=== PATIENT | female | born 1985 | race Two or more races ===

== ENCOUNTER 2024-10-06 06:50 | Emergency (ER) | payer MEDICAID, OTHER ==
[~2024-10-06] VITALS: Ht 152.4 cm; Wt 74.1 kg
--- NOTE | 2024-10-06 07:12 | ED.PDOC ---
HPI Comments 39-year-old female presents with a chief complaint of chest pain x 1 week with associated dizziness. Patient states that her chest pain is localized to her sternal region, radiates to her left shoulder, and started while she was lying down. Patient mentions that she has been having dizziness, like "I am going to faint", and the dizziness is made worse when turning her head side to side. Patient denies any injuries or trauma prior to onset of symptoms. 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 Family History Family History: Reviewed,noncontributory to illness Social History Smoker: Non-Smoker Alcohol: Denies ETOH Use Drugs: Denies Drug Use Lives In: Home Constitutional: denies: chills, diaphoresis, fatigue, fever, malaise, sweats, weakness, others EENTM: denies: blurred vision, double vision, ear bleeding, ear discharge, ear drainage, ear pain, ear ringing, eye pain, eye redness, hearing loss, mouth pain, mouth swelling, nasal discharge, nose bleeding, nose congestion, nose pain, photophobia, tearing, throat pain, throat swelling, voice changes, others Respiratory: denies: cough, hemoptysis, orthopnea, SOB at rest, shortness of breath, SOB with excertion, stridor, wheezing, others Cardiovascular: reports: chest pain; denies: dizzy spells, diaphoresis, Dyspnea on exertion, edema, irregular heart beat, left arm pain, lightheadedness, palpitations, PND, syncope, others Gastrointestinal: denies: abdomen distended, abdominal pain, blood streaked bowels, constipated, diarrhea, dysphagia, difficulty swallowing, hematemesis, melena, nausea, poor appetite, poor fluid intake, rectal bleeding, rectal pain, vomiting, others Genitourinary: denies: abnormal vagina bleeding, burning, dyspareunia, dysuria, flank pain, frequency, hematuria, incontinence, pain, , vagina discharge, urgency, others Neurological: reports: dizziness; denies: fainting, headache, left sided numbness, left sided weakness, numbness, paresthesia, pre-existing deficit, right sided numbness, right sided weakness, seizure, speech problems, tingling, tremors, weakness, others Musculoskeletal: denies: back pain, gout, joint pain, joint swelling, muscle pain, muscle stiffness, neck pain, others Integumetry: denies: bruises, change in color, change in hair/nails, dryness, laceration, lesions, lumps, rash, wounds, others Allergic/Immunocompromised: denies: Difficulty Healing, Frequent Infections, Hives, Itching, others Hematologic/Lymphatic: denies: anemia, blood clots, easy bleeding, easy bruising, swollen glands, others Endocrine: denies: excessive hunger, excessive sweating, excessive thirst, excessive urination, flushing, intolerance to cold, intolerance to heat, unexplained weight gain, unexplained weight loss, others Psychiatric: denies: anxiety, bipolar disorder, depression, hopeless, panic disorder, schizophrenia, sleepless, suicidal, others All Other Systems: Reviewed and Negative Physical Exam General Appearance: No Apparent Distress, Normal HEENT: Normal ENT Inspection, Pharynx Normal, TMs Normal Neck: Full Range of Motion, Non-Tender, Normal, Normal Inspection Respiratory: Chest Non-Tender, Lungs Clear, No Accessory Muscle Use, No Respiratory Distress, Normal Breath Sounds Cardiovascular: No Edema, No JVD, No Murmur, No Gallop, Normal Peripheral Pulses, Regular Rate/Rhythm Breast Exam: Deferred Gastrointestinal: No Organomegaly, Non Tender, No Pulsatile Mass, Normal Bowel Sounds, Soft Genitalia: Deferred Pelvic: Deferred Rectal: Deferred Extremities: No calf tenderness, Normal capillary refill, Normal inspection, Normal range of motion, Non-tender, No pedal edema Musculoskeletal : Apperance: Normal Neurologic: Alert, phone triage specialist II-XII nml as Tested, No Motor Deficits, Normal Affect, Normal Mood, No Sensory Deficits Cerebellar Function: Normal Reflexes: Normal Skin: Dry, Normal Color, Warm Lymphatic: No Adenopathy EKG EKG #1: Pulse Rate (adult): 97 [place]: Normal Cardiac Rhythm: NSR Block: None Hypertrophy: None ST: Normal Comments NO SIGNIFICANT ST CHANGES EKG #2: Comments 7:46 a.m. 2nd EKG Rate of 89 normal sinus rhythm with no significant ST changes. Unchanged from previous. Was a procedure done? Was a procedure done?: No CP Differential Dx Differential Diagnosis: Angina, Anxiety / Panic Attack, Electrolyte Disorder, Pulmonary Embolus Differential Diagnosis: Angina, Chest Wall Pain, Costochondritis, Gastritis, Myocardial Infarction, Pneumonia, Pulmonary Embolus X-Ray, Labs, Meds, VS Vital Signs Date Time Temp Pulse Resp B/P (MAP) Pulse Ox O2 Delivery O2 Flow Rate FiO2 10/06/24 07:59 82 18 98 Room Air 10/06/24 07:59 97.9 82 18 143/77 (99) 98 97.9 10/06/24 07:46 89 10/06/24 07:20 97 10/06/24 06:58 97.7 96 16 150/108 (122) 100 10/06/24 06:58 97 Lab Test 10/06/24 07:55 10/06/24 07:07 10/06/24 07:00 Range/Units Troponin I High Sensitivity < 3 L < 3 L </=34 ng/L White Blood Count 6.7 4.4-10.8 10^3/uL Red Blood Count 4.68 4.0-5.20 10^6/uL Hemoglobin 13.5 12.2-16.2 g/dL Hematocrit 41.1 36.0-46.0 % Mean Corpuscular Volume 87.6 80.0-100.0 fL Mean Corpuscular Hemoglobin 28.9 28.0-32.0 pg Mean Corpuscular Hemoglobin Concent 32.9 32.0-36.0 g/dL Red Cell Distribution Width 14.5 H 11.8-14.3 % Platelet Count 470 H 140-450 10^3/uL Mean Platelet Volume 8.0 6.9-10.8 fL Neutrophils (%) (Auto) 54.2 37.0-80.0 % Lymphocytes (%) (Auto) 38.0 10.0-50.0 % Monocytes (%) (Auto) 5.9 0.0-12.0 % Eosinophils (%) (Auto) 1.5 0.0-7.0 % Basophils (%) (Auto) 0.4 0.0-2.0 % Neutrophils # (Auto) 3.6 1.6-8.6 10 ^3/uL Lymphocytes # (Auto) 2.5 0.4-5.4 10 ^3/uL Monocytes # (Auto) 0.4 0-1.3 10 ^3/uL Eosinophils # (Auto) 0.1 0-0.8 10 ^3/uL Basophils # (Auto) 0 0-0.2 10 ^3/uL Nucleated Red Blood Cells 0.1 % Sodium Level 139 136-145 mmol/L Potassium Level 4.6 3.5-5.1 mmol/L Chloride Level 105 98-107 mmol/L Carbon Dioxide Level 26 20-31 mmol/L Anion Gap 8 5-15 Blood Urea Nitrogen 10 9-23 mg/dL Creatinine 0.80 0.550-1.02 mg/dL Glomerular Filtration Rate Calc 97 >90 mL/min BUN/Creatinine Ratio 12.5 10.0-20.0 Serum Glucose 107 H 74-106 mg/dL Calcium Level 10.0 8.7-10.4 mg/dL Urine Test Negative Negative 39-year-old female presents here with chest discomfort and dizziness. She states she has been stressed recently. She describes the dizziness as fainting like feeling not a room spinning sensation. I had her drank 1 L of water in the emergency department with improvement in her symptoms. Advised her she should drink more water and also tried to decrease her stress as much as possible. She does report chest discomfort. Considered possible acute coronary syndrome. Troponin x2 and EKG x2 has been negative. Other blood work in the emergency department has been done including a CBC and a BMP which were all within normal limits. Urine is negative today. At this time we discharging her home. Low suspicion for acute coronary syndrome. Advised her to take ibuprofen for chest discomfort for possible musculoskeletal/costochondritis. I have given her 1st dose in the ER. Advised her to return if symptoms worsen or persist. Patient agreeable and understands. Time of 1ST Reevaluation: 07:37 Reevaluation 1ST: Unchanged Time of 2ND Reevaluation: 09:09 Reevaluation 2ND: Improved Patient Education/Counseling: Diagnosis, Treatment, Prognosis Family Education/Counseling: Diagnosis, Treatment, Prognosis Departure 1 Departure Time of Disposition: 08:51 Impression: Primary Impression: Chest pain Qualified Codes: R07.9 - Chest pain, unspecified Additional Impression: Dizziness Disposition: 01 HOME / SELF CARE / HOMELESS Condition: Fair Additional Instructions: Follow up your primary care physician in 2-3 days. Return to the ER if symptoms worsen or persist. Take ibuprofen 600 mg ( 3x 200 mg tablets found [id number]) every 6 hours for the 1st 24 hours to help with chest discomfort inflammation the chest wall. After 1st 24 hours you may take it as needed. Discharged With: Self Critical Care Note Critical Care Time?: No Stability Stability form required: No Heart Score Heart Score: Heart Score Response (Comments) Value History Moderate Suspicious 1 EKG Normal 0 Age <45 0 Risk Factors No known risk factors 0 Troponin Normal limit 0 Total 1 I personally scribed for TOMMY PATRICIA MD ([email or web address]) on 10/06/24 at 08:51. Electronically submitted by Alex Douglas ([email or web address]). TOMMY PATRICIA MD Oct 06, 2024 07:12
[2024-10-06 07:47] LABS: Basophils # (auto) 0 10 ^3/uL (0-0.2); Basophils % (auto) 0.4 % (0.0-2.0); Eosinophils # (auto) 0.1 10 ^3/uL (0-0.8); Eosinophils % (auto) 1.5 % (0.0-7.0); Hematocrit 41.1 % (36.0-46.0); Hemoglobin 13.5 g/dL (12.2-16.2); Lymphocytes # (auto) 2.5 10 ^3/uL (0.4-5.4); Mean Corpuscular Hemoglobin 28.9 pg (28.0-32.0); Mean Corpuscular Hgb Conc. 32.9 g/dL (32.0-36.0); Mean Corpuscular Volume 87.6 fL (80.0-100.0); Monocytes # (auto) 0.4 10 ^3/uL (0-1.3); Monocytes % (auto) 5.9 % (0.0-12.0); Neutrophils # (auto) 3.6 10 ^3/uL (1.6-8.6); Neutrophils % (auto) 54.2 % (37.0-80.0); Nucleated Red Blood Cells % 0.1 %; Platelet Count (auto) 470 10^3/uL (140-450); Red Blood Cells 4.68 10^6/uL (4.0-5.20); Red Cell Distribution Width 14.5 % (11.8-14.3); White Blood Cell 6.7 10^3/uL (4.4-10.8)
--- NOTE | 2024-10-06 07:48 | ECG ---
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
[2024-10-06 07:56] LABS: Chloride 105 mmol/L (98-107); Potassium 4.6 mmol/L (3.5-5.1); Sodium 139 mmol/L (136-145)
[2024-10-06 07:57] LABS: Anion Gap 8 (5-15); Carbon Dioxide 26 mmol/L (20-31)
[2024-10-06 08:02] LABS: BUN/Creatinine Ratio 12.5 (10.0-20.0); Blood Urea Nitrogen 10 mg/dL (9-23)
[2024-10-06 08:03] LABS: Glucose 107 mg/dL (74-106)
[2024-10-06 09:12] VITALS: BP 151/99; PULSE 85; RESP 18; TEMP 97.7; O2SAT 97
[2024-10-06] MEDS: IBUPROFEN 800 MG TAB PO ONE (09:22)
--- NOTE | 2024-10-08 10:55 | ECG ---
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
== END 2024-10-06 09:28 | disposition home or self-care (01) ==
LOC: ER 06:50
DX: R07.9 Chest pain, unspecified (principal); R42 Dizziness and giddiness; Z32.02 Encounter for pregnancy test, result negative
CPT/HCPCS: 36415; 80048; 81025; 84484; 85025; 93005